=== PATIENT | female | born 1970 | race African-American/Black ===

== ENCOUNTER 2018-04-29 06:39 | Inpatient (IN) ==
[2018-04-21 13:05] LABS: Basophils % 0.5 % (0.0-0.8); Eosinophils # 0.1 10*3/uL (0.0-0.87); Eosinophils % 1.3 % (0.00-10.9); Hematocrit 39.6 VOL% (35.7-47.0); Hemoglobin 13.1 GM/DL (12.0-16.0); Lymphocytes # 1.7 10*3/uL (1.4-4.0); Lymphocytes % 45.2 % (21.3-54.2); Mean Corpuscular HGB Conc 33.1 GM/DL (32-36); Mean Corpuscular Hemoglobin 29 PG (27-34); Mean Platelet Volume 10.5 FL (9.6-12.0); Monocytes # 0.4 10*3/uL (0.11-0.8); Monocytes % 9.4 % (1.7-12.7); Neutrophils # 1.7 10*3/uL (1.4-7.4); Neutrophils % 43.6 % (38.7-73.9); Platelet Count 242 T/CUMM (130-400); Red Blood Count 4.45 MC/CUMM (3.8-5.5); Red Cell Distribution Width 13.3 % (9.3-17.3); White Blood Count 3.8 T/CUMM (4-12)
[2018-04-21 13:14] LABS: INR 1.1; PT Patient Result 11.2 SECS; Partial Thromboplastin Time 28.9 SECS (0-40)
[2018-04-21 13:26] LABS: Calcium 8.6 MG/DL (8.5-10.1); Osmolality,Calculated 278.4 MOS/KG (273-304); Potassium 3.9 MMOL/L (3.5-5.1)
[2018-04-21 17:22] LABS: Apearance,Urine CLEAR (Clear); Bacteria,Urine Occasional /HPF (Few); Bilirubin,Urine Negative (Negative); Blood, Urine Negative (Negative); Glucose,Urine (UA) Negative (Negative); Ketones,Urine Negative (Negative); Mucus,Urine Occasional /LPF (Occasional); Nitrite,Urine Negative (Negative); Protein,Urine Negative; Squamous Epithelial Cell,Urine Occasional /HPF (0-10); Urine Color Yellow (Yellow); Urine Specific Gravity 1.012 (1.001-1.035); Urine Urobilinogen < 2.0 EU/DL (0.2-1.0); WBC,Urine 1 /HPF (0-6)
[~2018-04-29 06:39] MED LIST: ceFAZolin 1,000 MG VIAL ONE; ceFAZolin 1,000 MG in SYRINGE 1 EACH IV ONE
[2018-04-29] MEDS ORDERED: FAMOTIDINE 20 MG TABLET PO ONE (08:02)
[2018-04-29] MEDS ORDERED: FAMOTIDINE 20 MG TABLET ONE (08:02)
[2018-04-29] MEDS ORDERED: DIAZEPAM 5 MG TABLET PO ONE (08:02)
[2018-04-29] MEDS ORDERED: DIAZEPAM 5 MG TABLET ONE (08:02)
[2018-04-29] MEDS ORDERED: LACTATED RINGERS 1,000 ML IV SCH (08:30)
[2018-04-29] MEDS ORDERED: BISACODYL 10 MG SUPP RECTAL PRN (12:53)
[2018-04-29] MEDS ORDERED: BENZOCAINE/MENTHOL LOZENGE 18/BOX PO PRN (12:53)
[2018-04-29] MEDS ORDERED: ACETAMINOPHEN 325 MG TABLET PO PRN (12:53)
[2018-04-29] MEDS ORDERED: ONDANSETRON 4 MG/2 ML VIAL IV PRN ×2 (12:53→14:06)
[2018-04-29 13:16] LABS: Apearance,Urine CLEAR (Clear); Bilirubin,Urine Negative (Negative); Blood, Urine Negative (Negative); Glucose,Urine (UA) Negative (Negative); Ketones,Urine 20 mg/dL (Negative); Nitrite,Urine Negative (Negative); Protein,Urine Negative; Squamous Epithelial Cell,Urine Occasional /HPF (0-10); Urine Color Straw (Yellow); Urine Specific Gravity 1.004 (1.001-1.035); Urine Urobilinogen < 2.0 EU/DL (0.2-1.0)
[2018-04-29] MEDS ORDERED: ONDANSETRON 4 MG/2 ML VIAL ONE ×2 (13:18→13:47)
[2018-04-29] MEDS ORDERED: DEXAMETHASONE 10 MG/1 ML VIAL ONE (13:18)
[2018-04-29] MEDS ORDERED: PROPOFOL 200 MG/20 ML VIAL IV ONE (13:18)
[2018-04-29] MEDS ORDERED: SUFentanil 50 MCG/ML AMP ONE (13:18)
[2018-04-29] MEDS ORDERED: MIDAZOLAM 2 MG/2 ML VIAL ONE (13:18)
[2018-04-29] MEDS ORDERED: SEVOFLURANE 1 UNIT/15 MINUTE INH ONE (13:18)
[2018-04-29] MEDS ORDERED: FLUMAZENIL 0.5 MG/5 ML VIAL IV ONE (13:19)
[2018-04-29] MEDS ORDERED: LACTATED RINGERS 1,000 ML IV ONE (13:19)
[2018-04-29] MEDS ORDERED: NEOSTIGMINE 10 MG/10 ML VIAL ONE (13:19)
[2018-04-29] MEDS ORDERED: ROCURONIUM 100 MG/10 ML VIAL IV ONE (13:19)
[2018-04-29] MEDS ORDERED: GLYCOPYRROLATE 0.4 MG/2 ML VIAL ONE (13:19)
[2018-04-29] MEDS ORDERED: ACETAMINOPHEN 1,000 MG/100 ML VIAL IV ONE (13:19)
[2018-04-29] MEDS ORDERED: HYDROmorphone 2 MG/1 ML VIAL ONE (13:47)
[2018-04-29] MEDS: HYDROmorphone 2 MG/1 ML VIAL IV PRN ×3 (14:00→15:37)
[2018-04-29] MEDS ORDERED: ceFAZolin 1,000 MG in SYRINGE 1 EACH IV SCH ×2 (18:30→21:00)
[2018-04-29] MEDS: KETOROLAC 30 MG/1 ML VIAL IV SCH (21:17)
[2018-04-30] MEDS: LACTATED RINGERS 1,000 ML IV SCH ×2 (00:20→06:32)
[2018-04-30] MEDS: HYDROmorphone 2 MG/1 ML VIAL IV PRN (01:19)
[2018-04-30] MEDS ORDERED: cefOXitin 2,000 MG in SYRINGE 1 EACH IV ONE (02:30)
[2018-04-30] MEDS: KETOROLAC 30 MG/1 ML VIAL IV SCH ×3 (03:54→16:45)
[2018-04-30 06:14] LABS: Basophils % 0.1 % (0.0-0.8); Hematocrit 37.1 VOL% (35.7-47.0); Hemoglobin 12.5 GM/DL (12.0-16.0); Immature Granulocytes % 0.4 %; Immature Granulocytes Absolute 0.06 #; Lymphocytes # 1.8 10*3/uL (1.4-4.0); Lymphocytes % 13.4 % (21.3-54.2); Mean Corpuscular HGB Conc 33.7 GM/DL (32-36); Mean Corpuscular Hemoglobin 29 PG (27-34); Mean Corpuscular Volume 86.7 FL (87-102); Monocytes % 7.6 % (1.7-12.7); Neutrophils # 10.6 10*3/uL (1.4-7.4); Neutrophils % 78.5 % (38.7-73.9); Platelet Count 225 T/CUMM (130-400); Red Blood Count 4.28 MC/CUMM (3.8-5.5); Red Cell Distribution Width 13.3 % (9.3-17.3); White Blood Count 13.5 T/CUMM (4-12)
[2018-04-30] MEDS: IBUPROFEN 800 MG TABLET PO PRN (09:02)
[2018-04-30] MEDS: oxyCODONE/ACETAMINOPHEN 5-325 MG TABLET PO PRN ×2 (09:02→13:05)
[2018-04-30] MEDS ORDERED: SIMETHICONE CHEW 80 MG TABLET PO PRN (09:40)
[2018-04-30] MEDS: MAGNESIUM HYDROXIDE SUSP 30 ML UDCUP PO PRN ×2 (11:41→17:46)
[2018-04-30] MEDS: DOCUSATE SODIUM 100 MG CAPSULE PO PRN (17:46)
[2018-05-01] MEDS: oxyCODONE/ACETAMINOPHEN 5-325 MG TABLET PO PRN (03:31)
[2018-05-01] MEDS: MAGNESIUM HYDROXIDE SUSP 30 ML UDCUP PO PRN (08:17)
[2018-05-01] MEDS: DOCUSATE SODIUM 100 MG CAPSULE PO PRN (08:17)
[2018-05-01] MEDS: IBUPROFEN 800 MG TABLET PO PRN (08:18)
[2018-05-01 10:17] VITALS: BP 148/84
== END 2018-05-01 11:15 | disposition home or self-care (01) | DRG 743 ==
LOC: N.SDSINP 06:39 → INTOOBSV 06:39 → OBSVTOIN 06:39 → N.OB 14:32
PROVIDERS: ADMIT Specialist; ATTEND Specialist